=== PATIENT | male | born 1955 | race Caucasian/White ===

== ENCOUNTER → 2021-04-27 | Outpatient (CLI) | payer MEDICARE ==
[2021-04-27 11:10] LABS: Basophils # (A) 0.1 k/uL (0-0.2); Basophils % (A) 1 %; Eosinophils # (A) 0.4 k/uL (0-0.7); Eosinophils % (A) 4 %; HCT 49.2 % (39.0-53.0); HGB 17.6 gm/dL (13.0-17.5); Lymphocytes # (A) 2.7 k/uL (1.0-4.8); Lymphocytes % (A) 34 %; MCHC 35.8 g/dL (31.0-37.0); MCV 89.5 fL (80.0-100.0); Mean Platelet Volume 7.4; Monocytes # (A) 0.5 k/uL (0-1.0); Monocytes % (A) 6 %; Neutrophils # (A) 4.3 k/uL (1.3-7.7); Neutrophils % (A) 54 %; Platelet Count 180 k/uL (150-450); RDW 12.7 % (11.5-15.5)
[2021-04-27 11:18] LABS: African American GFR (CKD) >90 (>60 ml/min/1.73 sqM); Anion Gap 7 mmol/L; Blood Urea Nitrogen 21 mg/dL (9-20); Calcium 10.2 mg/dL (8.4-10.2); Carbon Dioxide 30 mmol/L (22-30); Chloride 103 mmol/L (98-107); Glucose 92 mg/dL (74-99); Non-African American GFR(CKD) >90 (>60 ml/min/1.73 sqM); Potassium 4.2 mmol/L (3.5-5.1); Sodium 140 mmol/L (137-145)
[2021-04-27 12:09] LABS: Appearance,Urine Clear (Clear); Bilirubin,Urine Negative (Negative); Blood,Urine Small (Negative); Color,Urine Light Yellow; Glucose,Urine (UA) 4+ (Negative); Ketones,Urine Negative (Negative); Leukocyte Esterase,Urine Negative (Negative); Mucus,Urine Rare /hpf; Nitrite,Urine Negative (Negative); Protein,Urine Negative (Negative); RBC,Urine 2 /hpf (0-5); Specific Gravity,Urine 1.012 (1.001-1.035); Urobilinogen,Urine <2.0 mg/dL (<2.0); WBC,Urine 1 /hpf (0-5)
== END | disposition home or self-care (01) ==
LOC: LABPAT 10:21
PROVIDERS: ATTEND Urology
DX: Z01.812 Encounter for preprocedural laboratory examination (principal); N40.1 Benign prostatic hyperplasia with lower urinary tract symptoms; N21.9 Calculus of lower urinary tract, unspecified; E11.9 Type 2 diabetes mellitus without complications; R31.0 Gross hematuria
CPT/HCPCS: 36415; 80048; 81001; 85025; 87086

== ENCOUNTER 2021-05-04 15:20 | Day surgery (SDC) | payer MEDICARE ==
[2021-05-01 13:06] VITALS: BMI 28.5
[~2021-05-04 15:20] MED LIST: DEXAMETHASONE SOD PHOSPHATE 4 MG/ML 1 ML VIAL IV ONE; HYDROmorphone 0.5 MG/0.5 ML SYRINGE IVP PRN; LACTATED RINGERS 1,000 ML IV SCH; MIDAZOLAM 2 MG/2 ML VIAL IV PRN; ONDANSETRON 4 MG/2 ML VIAL IVP ONE
[2021-05-04 16:00] LABS: Glucose,Whole Blood 111 mg/dL (75-99)
[2021-05-04] MEDS ORDERED: SCOPOLAMINE 1.5MG/72HR PATCH TRANSDERM ONE (16:06)
--- NOTE | 2021-05-04 17:04 | P.HPIHPCON ---
History of Present Illness H&P Date: 05/04/21 Chief Complaint: Bladder stone, BPH This is 65-year-old male with history of a 2.8 cm bladder stone, and LUTS despite medical therapy. Option of cystolitholapaxy with a TURP was discussed with him. Discussed the risk which includes but not limited to bleeding, infection, injury to the bladder, urinary incontinence, retrograde ejaculation. Discussed the potential of persistent symptoms even with surgery. He understood all the risk and agreed to proceed with cystolitholapaxy, TURP Consent for Procedure: I have explained the operation/procedure to the patient, including the risks, benefits, side effects, alternative therapies (including not receiving the proposed treatment or service), the likelihood of the patient achieving his/her goals, and potential recuperation problems for the procedure/sedation/analgesia, as well as any blood products, if indicated. I also explained to the patient the risks, benefits and side effects of the alternatives, as well as the risks related to not receiving the proposed procedure, care, treatment, or services. Past Medical History Past Medical History: Hyperlipidemia, Hypertension, Musculoskeletal Disorder, Prostate Disorder Additional Past Medical History / Comment(s): Hx abn BS, on Rx now, denies DM. Hx kidney stones. BPH, stone in bladder currently. Lower back pain. History of Any Multi-Drug Resistant Organisms: None Reported Past Surgical History: Orthopedic Surgery Additional Past Surgical History / Comment(s): Lithotripsy x1. Rt knee scope Past Anesthesia/Blood Transfusion Reactions: No Reported Reaction Smoking Status: Never smoker - Past Family History Mother Family Medical History: Cancer Additional Family Medical History / Comment(s): lymphoma Medications and Allergies Home Medications Medication Instructions Recorded Confirmed Type Lisinopril-Hctz 20-12.5 mg 1 tab PO DAILY 05/01/21 05/04/21 History [Zestoretic 20-12.5] Meloxicam [Mobic] 15 mg PO DAILY 05/01/21 05/04/21 History Simvastatin [Zocor] 40 mg PO HS 05/01/21 05/04/21 History Tamsulosin HCl [Flomax] 0.4 mg PO DAILY 05/01/21 05/04/21 History metFORMIN HCL [metFORMIN HCL ER] 500 mg PO DAILY 05/01/21 05/04/21 History Allergies Allergy/AdvReac Type Severity Reaction Status Date / Time No Known Allergies Allergy Verified 05/04/21 15:44 Surgical - Exam Vital Signs Temp Pulse Resp BP Pulse Ox 99.0 F 82 18 165/86 98 05/04/21 15:49 05/04/21 15:49 05/04/21 15:49 05/04/21 15:49 05/04/21 15:49 - General well developed, well nourished, no distress, no pain - ENT normal nares, normal mucosa - Respiratory normal expansion, normal respiratory effort - Abdomen Abdomen: soft, non tender - Psychiatric oriented to time, oriented to person, oriented to place Results - Labs Abnormal Lab Results - Last 24 Hours (Table) 05/04/21 Range/Units 15:53 POC Glucose (mg/dL) 111 H (75-99) mg/dL Assessment and Plan Assessment: 65-year-old male with history of BPH, the bladder stone -Or for cystolitholapaxy, TURP
[2021-05-04] MEDS ORDERED: PROPOFOL 10 MG/ML 20 ML VIAL IV ONE (17:15)
[2021-05-04] MEDS ORDERED: fentaNYL (PF) 50 MCG/ML 2 ML AMP ONE (17:15)
[2021-05-04] MEDS ORDERED: SUCCINYLCHOLINE CHLORIDE 100 MG/5 ML SYR IV ONE (17:15)
[2021-05-04] MEDS ORDERED: MIDAZOLAM 2 MG/2 ML VIAL ONE (17:15)
[2021-05-04] MEDS ORDERED: HYDROmorphone (PF) 1 MG/ML ONE (17:15)
[2021-05-04] MEDS ORDERED: LIDOCAINE 1% INJ 10MG/ML (20 ML MDV) ONE (17:15)
[2021-05-04] MEDS ORDERED: LACTATED RINGERS 1,000 ML IV ONE ×2 (18:06)
[2021-05-04 19:07] VITALS: TEMP 97.8
--- NOTE | 2021-05-04 19:08 | P.OP ---
Date of Procedure: 05/04/21 Preoperative Diagnosis: BPH, bladder stone Postoperative Diagnosis: Same Procedure(s) Performed: Cystoscopy, TURP (bipolar), cystolitholapaxy Anesthesia: ANN MARIE Surgeon: Vicente Delaney Estimated Blood Loss (ml): 50 Pathology: other (Prostate chips, bladder stone) Condition: stable Disposition: PACU Indications for Procedure: This is 65-year-old male with history of a 2.8 cm bladder stone, and LUTS despite medical therapy. Option of cystolitholapaxy with a TURP was discussed with him. Discussed the risk which includes but not limited to bleeding, infection, injury to the bladder, urinary incontinence, retrograde ejaculation. Discussed the potential of persistent symptoms even with surgery. He understood all the risk and agreed to proceed with cystolitholapaxy, TURP Operative Findings: Large bladder stone, trilobar hyperplasia Description of Procedure: Patient was brought to the operating room, general anesthesia was induced. He was prepped and draped in sterile fashion a placement dorsal lithotomy position. Cystoscopy fitted with a 21-Gabonese sheath was inserted per urethra, cystoscopy was performed which showed a large stone within the bladder, of note patient also had trilobar hyperplasia, snf moderately trabeculated bladder. Attention was first carried to the stone, using the holmium laser the stone was fragmented into small fragments, fragments were removed using the cystoscope. Repeat cystoscopy showed no sizable fragments. At this time the cystoscope was withdrawn and a resectoscope fitted with a 25-Gabonese sheath was inserted per urethra. Using the bipolar resectoscope the prostate was resected down to the surgical capsule, all 3 lobes of the prostate were resected. Resection was carried proximal to the Veru, and distal to the bladder neck. Hemostasis was achieved using cautery. Prostate chips were irrigated out using the Nancyik evacuator. Repeat cystoscopy showed no evidence of prostate chips, or evidence of bleeding. Neither the ureteral orifices was involved in the resection. At this time the cystoscope was withdrawn and a 20-Gabonese Covarrubias was inserted with return of clear urine. The balloon was inflated to 30 mL. Patient tolerated the procedure well was taken to PACU in stable condition
[2021-05-04 19:59] LABS: Glucose,Whole Blood 145 mg/dL (75-99)
[2021-05-04 20:24] VITALS: PULSE 74
[2021-05-04 20:46] VITALS: BP 146/81; RESP 16
== END 2021-05-04 20:56 | disposition home or self-care (01) ==
LOC: OR 15:20 → 6NMEDSUR 17:45 → OR 20:56
PROVIDERS: ATTEND Urology
DX: N21.0 Calculus in bladder (principal); N40.0 Benign prostatic hyperplasia without lower urinary tract symptoms; I10 Essential (primary) hypertension; E78.5 Hyperlipidemia, unspecified; M54.5 Low back pain; Z87.442 Personal history of urinary calculi; Z79.899 Other long term (current) drug therapy
CPT/HCPCS: 52318; 52630; 82365; J2250; J1100; J0690; J2405; J2001; J3010; J1170; J0330; J2704; 88305

== ENCOUNTER 2023-02-27 03:31 | Emergency (ER) | payer MEDICARE ==
[2023-02-27 03:41] VITALS: BP 177/104; PULSE 72; TEMP 97.9
[2023-02-27 04:11] LABS: Appearance,Urine Clear (Clear); Basophils % (A) 0 %; Bilirubin,Urine Negative (Negative); Blood,Urine Small (Negative); Color,Urine Yellow; Eosinophils # (A) 0.3 k/uL (0-0.7); Eosinophils % (A) 3 %; Glucose,Urine (UA) Trace (Negative); HCT 47.7 % (39.0-53.0); HGB 16.5 gm/dL (13.0-17.5); Ketones,Urine Negative (Negative); Leukocyte Esterase,Urine Negative (Negative); Lymphocytes # (A) 2.3 k/uL (1.0-4.8); Lymphocytes % (A) 26 %; MCH 30.6 pg (25.0-35.0); MCHC 34.7 g/dL (31.0-37.0); MCV 88.2 fL (80.0-100.0); Mean Platelet Volume 7.7; Monocytes # (A) 0.6 k/uL (0-1.0); Monocytes % (A) 7 %; Mucus,Urine Rare /hpf; Neutrophils # (A) 5.6 k/uL (1.3-7.7); Neutrophils % (A) 63 %; Nitrite,Urine Negative (Negative); Platelet Count 160 k/uL (150-450); Protein,Urine Trace (Negative); RBC 5.41 m/uL (4.30-5.90); RBC,Urine 2 /hpf (0-5); RDW 12.7 % (11.5-15.5); Specific Gravity,Urine 1.019 (1.001-1.035); Squamous Epithelial Cell,Urine <1 /hpf (0-4); Urobilinogen,Urine <2.0 mg/dL (<2.0); WBC,Urine <1 /hpf (0-5)
[2023-02-27] MEDS ORDERED: HYDROmorphone 0.5 MG/0.5 ML SYRINGE IVP STA (04:12)
[2023-02-27] MEDS ORDERED: KETOROLAC 15 MG/ML 1 ML VIAL IVP STA (04:13)
[2023-02-27 04:39] LABS: ALT 37 U/L (4-49); AST 29 U/L (17-59); African American GFR (CKD) >90 (>60 ml/min/1.73 sqM); Albumin 4.4 g/dL (3.5-5.0); Alkaline Phosphatase 105 U/L (38-126); Anion Gap 9 mmol/L; Blood Urea Nitrogen 22 mg/dL (9-20); Calcium 9.3 mg/dL (8.4-10.2); Carbon Dioxide 23 mmol/L (22-30); Chloride 105 mmol/L (98-107); Glucose 130 mg/dL (74-99); Non-African American GFR(CKD) >90 (>60 ml/min/1.73 sqM); Potassium 4.1 mmol/L (3.5-5.1); Sodium 137 mmol/L (137-145); Total Bilirubin 0.8 mg/dL (0.2-1.3); Total Protein 7.1 g/dL (6.3-8.2)
--- NOTE | 2023-02-27 04:59 | ED ---
Abdominal Pain HPI - General Chief Complaint: Abdominal Pain Stated Complaint: ABD Pain Time Seen by Provider: 02/27/23 04:05 Source: patient Mode of arrival: ambulatory Limitations: no limitations - History of Present Illness Initial Comments: This patient is 67-year-old man presenting to have evaluation for pain in the right flank that is been going on for past few hours. The patient states that it is somewhat similar to previous kidney stone though not identical. He states this is more aching in that pain had been sharp. No accompanying symptoms. No fever or chills. No change in bowel movements or urination. MD Complaint: abdominal pain -: hour(s) Location: R flank Radiation: none Migration to: no migration Severity: moderate Quality: aching Consistency: constant Improves With: nothing Worsens With: nothing Associated Symptoms: denies other symptoms - Related Data Home Medications Medication Instructions Recorded Confirmed Lisinopril-Hctz 20-12.5 mg 1 tab PO DAILY 05/01/21 05/04/21 [Zestoretic 20-12.5] Meloxicam [Mobic] 15 mg PO DAILY 05/01/21 05/04/21 Simvastatin [Zocor] 40 mg PO HS 05/01/21 05/04/21 Tamsulosin HCl [Flomax] 0.4 mg PO DAILY 05/01/21 05/04/21 metFORMIN HCL [metFORMIN HCL ER] 500 mg PO DAILY 05/01/21 05/04/21 Previous Rx's Medication Instructions Recorded Cephalexin [Keflex] 500 mg PO Q8HR #15 cap 05/04/21 Ketorolac [Toradol] 10 mg PO Q6HR PRN #15 tab 05/04/21 Dicyclomine [Bentyl] 20 mg PO QID #15 tablet 02/27/23 Allergies Allergy/AdvReac Type Severity Reaction Status Date / Time No Known Allergies Allergy Verified 02/27/23 03:41 Review of Systems ROS Statement: Those systems with pertinent positive or pertinent negative responses have been documented in the HPI. ROS Other: All systems not noted in ROS Statement are negative. Constitutional: Denies: fever, chills Respiratory: Denies: cough, dyspnea Cardiovascular: Denies: chest pain, palpitations Gastrointestinal: Reports: as per HPI, abdominal pain. Denies: nausea, vomiting, diarrhea, constipation Genitourinary: Denies: dysuria, hematuria, testicular pain Musculoskeletal: Denies: back pain Skin: Denies: rash Past Medical History Past Medical History: Hyperlipidemia, Hypertension History of Any Multi-Drug Resistant Organisms: None Reported Additional Past Surgical History / Comment(s): AAA Past Psychological History: No Psychological Hx Reported Smoking Status: Former smoker Past Alcohol Use History: Occasional Past Drug Use History: None Reported General Exam Limitations: no limitations General appearance: alert, in no apparent distress Head exam: Present: atraumatic, normocephalic Eye exam: Present: normal appearance. Absent: scleral icterus, conjunctival injection Respiratory exam: Present: normal lung sounds bilaterally. Absent: respiratory distress, wheezes, rales, rhonchi, stridor Cardiovascular Exam: Present: regular rate, normal rhythm, normal heart sounds. Absent: systolic murmur, diastolic murmur, rubs, gallop GI/Abdominal exam: Present: soft. Absent: distended, tenderness, guarding, rebound, rigid, mass, pulsatile mass, hernia Extremities exam: Present: normal inspection, normal capillary refill. Absent: pedal edema, calf tenderness Back exam: Present: normal inspection. Absent: CVA tenderness (R), CVA tenderness (L) Neurological exam: Present: alert Skin exam: Present: warm, dry, intact, normal color. Absent: rash Course Vital Signs 02/27/23 02/27/23 03:37 06:15 Temperature 97.9 F Pulse Rate 72 72 Respiratory 18 16 Rate Blood Pressure 177/104 O2 Sat by Pulse 99 98 Oximetry Medical Decision Making - Medical Decision Making This patient is a 67-year-old man presenting with complaint of flank pain. The physical exam not showing abdominal tenderness concerning for surgical condition. Given the flank pain computed tomography scan is ordered to evaluate for possible stone. I interpreted that this as not showing acute kidney stone or hydronephrosis. The radiologist did note some stool at terminal ileum. Given this will give patient a course of GoLYTELY which she would prefer to take at home, and have reevaluation. We discussed appropriate further care and follow-up as well as return parameters. The patient did have good relief of symptoms with analgesia here. Was pt. sent in by a medical professional or institution (, PA, VOCATIONAL INSTRUCTOR, urgent care, hospital, or fci...) When possible be specific @ -[No] Did you speak to anyone other than the patient for history (EMS, parent, family, police, friend...)? What history was obtained from this source @ -[No] Did you review nursing and triage notes (agree or disagree)? Why? @ -[I reviewed and agree with nursing and triage notes] Were old charts reviewed (outside hosp., previous admission, EMS record, old EKG, old radiological studies, urgent care reports/EKG's, fci records)? Report findings @ -[No old charts were reviewed] Differential Diagnosis (chest pain, altered mental status, abdominal pain women, abdominal pain men, vaginal bleeding, weakness, fever, dyspnea, syncope, headache, dizziness, GI bleed, back pain, seizure, CVA, palpatations, mental health, musculoskeletal)? @ -[Differential Abdominal Pain Men: Appendicitis, cholecystitis, diverticulosis, ischemic bowel, pancreatitis, hepatitis, UTI, gastroenteritis, AAA, incarcerated hernia, bowel obstruction, constipation, inflammatory bowel, hepatitis, peptic ulcer disease, splenic infarction, perforated viscus, testicular torsion, this is not meant to be an all-inclusive list EKG interpreted by me (3pts min.). @ -[ X-rays interpreted by me (1pt min.). @ -[None done] CT interpreted by me (1pt min.). @ -[As above U/S interpreted by me (1pt. min.). @ -[None done] What testing was considered but not performed or refused? (CT, X-rays, U/S, labs)? Why? @ -[None] What meds were considered but not given or refused? Why? @ -[None] Did you discuss the management of the patient with other professionals (professionals i.e. , PA, VOCATIONAL INSTRUCTOR, lab, RT, psych nurse, social media designer, pet feeder, teacher, resident medical officer, special education case manager)? Give summary @ -[No] Was smoking cessation discussed for >3mins.? @ -[No] Was critical care preformed (if so, how long)? @ -[No] Were there social determinants of health that impacted care today? How? (Homelessness, low income, unemployed, alcoholism, drug addiction, transportation, low edu. Level, literacy, decrease access to med. care, assisted, rehab)? @ -[No] Was there de-escalation of care discussed even if they declined (Discuss DNR or withdrawal of care, Hospice)? DNR status @ -[No] What co-morbidities impacted this encounter? (DM, HTN, Smoking, COPD, CAD, Cancer, CVA, ARF, Chemo, Hep., AIDS, mental health diagnosis, sleep apnea, morbid obesity)? @ -[None] Was patient admitted / discharged? Hospital course, mention meds given and route, prescriptions, significant lab abnormalities, going to OR and other pertinent info. @ -[Discharged Undiagnosed new problem with uncertain prognosis? @ -[No] Drug Therapy requiring intensive monitoring for toxicity (Heparin, Nitro, Insulin, Cardizem)? @ -[No] Were any procedures done? @ -[No] Diagnosis/symptom? @ -[Acute abdominal pain, uncomplicated Acute, or Chronic, or Acute on Chronic? @ -[default] Uncomplicated (without systemic symptoms) or Complicated (systemic symptoms)? @ -[default] Side effects of treatment? @ -[No] Exacerbation, Progression, or Severe Exacerbation? @ -[No] Poses a threat to life or bodily function? How? (Chest pain, USA, ND, pneumonia, PE, COPD, DKA, ARF, appy, cholecystitis, CVA, Diverticulitis, Homicidal, Suicidal, threat to staff... and all critical care pts) @ -[No] - Lab Data Result diagrams: 02/27/23 04:03 02/27/23 04:03 Lab Results 02/27/23 02/27/23 02/27/23 Range/Units 04:03 04:03 04:03 WBC 9.0 (3.8-10.6) k/uL RBC 5.41 (4.30-5.90) m/uL Hgb 16.5 (13.0-17.5) gm/dL Hct 47.7 (39.0-53.0) % MCV 88.2 (80.0-100.0) fL MCH 30.6 (25.0-35.0) pg MCHC 34.7 (31.0-37.0) g/dL RDW 12.7 (11.5-15.5) % Plt Count 160 (150-450) k/uL MPV 7.7 Neutrophils % 63 % Lymphocytes % 26 % Monocytes % 7 % Eosinophils % 3 % Basophils % 0 % Neutrophils # 5.6 (1.3-7.7) k/uL Lymphocytes # 2.3 (1.0-4.8) k/uL Monocytes # 0.6 (0-1.0) k/uL Eosinophils # 0.3 (0-0.7) k/uL Basophils # 0.0 (0-0.2) k/uL Sodium 137 (137-145) mmol/L Potassium 4.1 (3.5-5.1) mmol/L Chloride 105 (98-107) mmol/L Carbon Dioxide 23 (22-30) mmol/L Anion Gap 9 mmol/L BUN 22 H (9-20) mg/dL Creatinine 0.82 (0.66-1.25) mg/dL Est GFR (CKD-EPI)AfAm >90 (>60 ml/min/1.73 sqM) Est GFR (CKD-EPI)NonAf >90 (>60 ml/min/1.73 sqM) Glucose 130 H (74-99) mg/dL Calcium 9.3 (8.4-10.2) mg/dL Total Bilirubin 0.8 (0.2-1.3) mg/dL AST 29 (17-59) U/L ALT 37 (4-49) U/L Alkaline Phosphatase 105 (38-126) U/L Total Protein 7.1 (6.3-8.2) g/dL Albumin 4.4 (3.5-5.0) g/dL Urine Color Yellow Urine Appearance Clear (Clear) Urine pH 6.0 (5.0-8.0) Ur Specific [place] 1.019 (1.001-1.035) Urine Protein Trace H (Negative) Urine Glucose (UA) Trace H (Negative) Urine Ketones Negative (Negative) Urine Blood Small H (Negative) Urine Nitrite Negative (Negative) Urine Bilirubin Negative (Negative) Urine Urobilinogen <2.0 (<2.0) mg/dL Ur Leukocyte Esterase Negative (Negative) Urine RBC 2 (0-5) /hpf Urine WBC <1 (0-5) /hpf Ur Squamous Epith Cells <1 (0-4) /hpf Urine Mucus Rare H (None) /hpf Disposition Clinical Impression: Abdominal pain Disposition: HOME SELF-CARE Condition: Good Instructions (If sedation given, give patient instructions): Abdominal Pain (ED) Prescriptions: Dicyclomine [Bentyl] 20 mg PO QID #15 tablet Is patient prescribed a controlled substance at d/c from ED?: No Referrals: Bahman Harden MD [Primary Care Provider] - 1-2 days
--- NOTE | 2023-02-27 05:31 | CT ---
EXAMINATION TYPE: CT abdomen pelvis wo con DATE OF EXAM: 02/27/2023 HISTORY: Right flank pain CT DLP: 736.4 mGycm. Automated Exposure Control for Dose Reduction was Utilized. TECHNIQUE: CT scan of the abdomen and pelvis is performed without oral or IV contrast. COMPARISON: NONE FINDINGS: Within the limitations of a non-contrast study, the following observations are made. LUNG BASES: Coronary artery calcification is present. Some dependent atelectasis in the bases is seen . LIVER/GB: No significant abnormality is appreciated. PANCREAS: No significant abnormality is seen. SPLEEN: No significant abnormality is seen. ADRENALS: No significant abnormality is seen. KIDNEYS: No left-sided nephrolithiasis or hydronephrosis. There is 4 mm nonobstructing calculus right kidney axial image 75 lower pole level. There is 2.0 cm simple thin-walled cyst medially right kidne y axial image 64 at upper to midpole level. There is no hydronephrosis or obstructing ureteral calcul i seen bilaterally. No nephrolithiasis within urinary bladder. Scattered small bilateral pelvic phleb oliths. BOWEL: Small bowel feces sign terminal ileum. No abnormal small bowel dilatation. Findings consistent with delayed passage of contrast material to colonic level. Normal-appearing appendix. No suspicious colonic dilatation. Few diverticula in the sigmoid colon. No CT evidence for acute diverticulitis. GENITAL ORGANS: Mildly enlarged prostate gland bulging on bladder base.. LYMPH NODES: No greater than 1cm abdominal or pelvic lymph nodes are appreciated. OSSEOUS STRUCTURES: Slight scoliotic curvature. Multilevel spurring in the thoracolumbar spine. OTHER: Mild to moderate calcified plaque of the ectatic aorta extends into branch vessels. No greater than 3.0 cm AAA Tiny fat-containing umbilical hernia. IMPRESSION: Single 4 mm nonobstructing right renal calculus. No hydronephrosis or obstructing uretera l calculi seen bilaterally. No acute findings are evident.
[2023-02-27 06:16] VITALS: RESP 16
[2023-02-27] MEDS ORDERED: PEG 3350 (236 GM/BTL) + LYTES 4,000 ML BOTTLE PO ONE (06:30)
== END 2023-02-27 06:34 | disposition home or self-care (01) ==
LOC: EC 03:31
DX: R10.9 Unspecified abdominal pain (principal); E78.5 Hyperlipidemia, unspecified; I10 Essential (primary) hypertension; Z87.891 Personal history of nicotine dependence; Z79.84 Long term (current) use of oral hypoglycemic drugs; Z79.899 Other long term (current) drug therapy
CPT/HCPCS: 36415; 80053; 85025; 81001; 74176; 99284; 96374; 96375; J1885; J1170